=== PATIENT | male | born 1940 | race Caucasian/White ===

== ENCOUNTER 2016-10-01 09:44 | Outpatient (CLI) | payer OTHER ==
--- NOTE | 2016-10-01 12:39 | DIAGNOSTIC IMAGING REPORT ---
PROCEDURE: US VENOUS - BILATERAL EXT INDICATION: DIABETIC NONHEALING WOUND,ARTERIAL DISEASE TECHNIQUE: Duplex sonography of the deep and superficial venous system in both lower extremities was performed. Compression and augmentation techniques were used. The patient was scanned in the upright position. Surveillance of the venous system during Valsalva maneuver when appropriate was performed. COMPARISON: None. FINDINGS: Each interrogated segment of the deep vein demonstrates normal compressibility, augmentation, and normal color Doppler flow without filling defect. No thrombus in either greater saphenous or short saphenous vein. There is no venous reflux in the bilateral common femoral, superficial femoral and greater saphenous veins. Right greater saphenous vein measures 8 mm proximally, 2 mm mid and 1 mm distally. Left greater saphenous vein measures 7 mm proximally, 3 mm mid and 1 mm distally. 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 No evidence of a DVT in both lower extremities 2. No evidence of venous insufficiency in both lower extremities 3. 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
--- NOTE | 2016-10-01 12:51 | DIAGNOSTIC IMAGING REPORT ---
PROCEDURE: US ART LOWER EXT WITH FARHAN-LEFT INDICATION: DIABETIC NONHEALING WOUND,ARTERIAL DISEASE TECHNIQUE: Preexercise ABIs were performed. Post exercise (50 toe raises) ABIs were performed. Color Doppler duplex imaging of the left lower extremity was performed. COMPARISON: None. FINDINGS: ABIs: Resting ABIs: Posterior tibial and dorsalis pedis both 1.2. Post exercise ABIs: Posterior tibial 0.8, dorsalis pedis 1.1. (Right lower extremity resting ABIs: 1.2 for posterior tibial and dorsalis pedis, post exercise ABIs: posterior tibial 1.1 and dorsalis pedis 1.0, normal) VESSELS: Moderate atherosclerosis. Normal triphasic wave form of the common femoral artery to the popliteal artery. Monophasic wave form of the posterior tibial and anterior tibial arteries but normal triphasic wave form of the dorsalis pedis. On today's venous insufficiency ultrasound, incidental note was made of a 2.5 cm distal SFA aneurysm. LEFT LOWER EXTREMITY PEAK SYSTOLIC VELOCITIES: Common femoral artery: 85 cm/second. Profunda femoral artery: 51 cm/second. Proximal superficial femoral artery: 75 cm/second. Mid superficial femoral artery: 91 cm/second. Distal superficial femoral artery: 79 cm/second. Popliteal artery: 102 cm/second. Proximal posterior tibial artery: 20 cm/second. Proximal anterior tibial artery: 36 cm/second. Distal posterior tibial artery: 17 cm/second. Dorsalis pedis artery: 82 cm/second. IMPRESSION: 1. Moderate atherosclerosis. 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 2. Distal SFA aneurysm 3. Velocities suggest high-grade stenosis of the anterior tibial artery but there is normal triphasic wave form of the dorsalis pedis artery.
== END 2016-10-01 23:00 ==
LOC: US SRH 09:44
DX: I72.4 Aneurysm of artery of lower extremity (principal); I70.90 Unspecified atherosclerosis